=== PATIENT | female | born 1950 | race Caucasian/White ===

== ENCOUNTER 2021-03-09 13:27 | Outpatient (CLI) | payer MEDICARE, SELFPAY ==
--- NOTE | 2021-03-09 13:36 | MM_ITS ---
WS: [id number] BILATERAL SCREENING DIGITAL MAMMOGRAM WITH CAD HISTORY: SCREENING COMPARISON: None available. Bilateral CC and MLO views submitted. Computer aided detection analyzed. Breast composition: The breasts are heterogeneously dense, which may obscure small masses. No suspici ous masses, microcalcifications or architectural distortion. Benign calcifications within each breast . MM/[place] [id number] IMPRESSION: BI-RADS: 2-Benign FOLLOW UP: 1 Year Follow-up
== END 2021-03-09 13:28 | disposition home or self-care (01) ==
LOC: RADSHAW 13:34
PROVIDERS: PCP Physician Assistant; Visit Provider Physician Assistant
DX: Z12.31 Encounter for screening mammogram for malignant neoplasm of breast (principal)
CPT/HCPCS: 77067

== ENCOUNTER → 2021-07-24 11:00 | Outpatient (BNVA) | payer MEDICARE, SELFPAY | PROVIDERS: PCP Physician Assistant; Visit Provider Registered Nurse Neonatal Intensive Care | DX: Z20.822 Contact with and (suspected) exposure to COVID-19 (principal) | CPT/HCPCS: 87635 ==

== ENCOUNTER → 2022-01-26 10:47 | Outpatient (BNVA) | payer MEDICARE, SELFPAY | PROVIDERS: PCP Family Medicine; Visit Provider Family Medicine | DX: Z00.00 Encounter for general adult medical examination without abnormal findings (principal); E03.9 Hypothyroidism, unspecified | CPT/HCPCS: 80053; 80061; 84443 ==

== ENCOUNTER → 2022-08-29 11:25 | Outpatient (BNVA) | payer MEDICARE, SELFPAY | PROVIDERS: PCP Family Medicine; Visit Provider Family Medicine | DX: Z00.00 Encounter for general adult medical examination without abnormal findings (principal); E03.9 Hypothyroidism, unspecified | CPT/HCPCS: 84443 ==

== ENCOUNTER → 2023-02-06 11:18 | Outpatient (BNVA) | payer MEDICARE, SELFPAY | PROVIDERS: PCP Family Medicine; Visit Provider Family Medicine | DX: E03.9 Hypothyroidism, unspecified (principal); G47.9 Sleep disorder, unspecified; Z13.1 Encounter for screening for diabetes mellitus; Z13.6 Encounter for screening for cardiovascular disorders | CPT/HCPCS: 80053; 80061; 83036; 84443 ==

== ENCOUNTER → 2024-02-19 15:26 | Outpatient (BNVA) | payer MEDICARE, SELFPAY | PROVIDERS: PCP Family Medicine; Visit Provider Family Medicine | DX: Z00.00 Encounter for general adult medical examination without abnormal findings (principal); E03.9 Hypothyroidism, unspecified | CPT/HCPCS: 80053; 80061; 84443 ==

== ENCOUNTER 2024-04-02 12:40 | Outpatient (CLI) | payer MEDICARE, SELFPAY ==
--- NOTE | 2024-04-02 13:00 | MR_ITS ---
WS: [id number] MRI LEFT KNEE NONCONTRAST TECHNIQUE: Axial PD, coronal PD fat sat, coronal PD, sagittal PD, and sagittal PD fat-sat images obta ined. CLINICAL INFORMATION: knee pain/dysfunction post injury, not healing COMPARISON: None. FINDINGS: Distal quadriceps and patella tendons are intact. Hypertrophic patella. Advanced chondromalacia [place] grade 4. Small amount of subchondral edema. ACL and PCL are intact. Small osteochondral defect inv olving the articular surface medial tibial plateau with small osteochondral defect measuring 6 mm. Re commend correlation for recent trauma. Small amount of fluid and edema in the associated soft tissues . Bucket-handle type tear involving the medial meniscus with peripheral extrusion. Meniscal fragment extends into the posterior intercondylar fossa. Chronic thinning of the lateral meniscus. Small amount of fluid and edema deep to the medial collateral ligament compatible with grade 1-2 inju ry. Lateral collateral ligament appears intact. Popliteus appears intact. Normal fibula head. A few t iny lobulated popliteal cysts. MR/MR knee LT wo con* [id number] IMPRESSION: 1. Moderate edema involving the medial tibial plateau with a small osteochondr al defect measuring 5 mm. Recommend correlation with recent injury. 2. Bucket-handle type tear of the medial meniscus with displaced fragment exte nding into the intercondylar fossa anterior to the PCL. Peripheral extrusion of the medial meniscus. 3. Grade 1-2 injury medial collateral ligament. 4. Grade IV chondromalacia patella. Outbridge grading: grade IV: full-thickness cartilage loss with underlying bone reactive changes
== END 2024-04-02 12:41 | disposition home or self-care (01) ==
LOC: RAD 12:41
PROVIDERS: PCP Family Medicine; Visit Provider Family Medicine
DX: S83.212A Bucket-handle tear of medial meniscus, current injury, left knee, initial encounter (principal); S83.412A Sprain of medial collateral ligament of left knee, initial encounter; M22.42 Chondromalacia patellae, left knee; X58.XXXA Exposure to other specified factors, initial encounter
CPT/HCPCS: 73721

== ENCOUNTER → 2024-09-18 13:31 | Outpatient (BNVA) | payer MEDICARE, SELFPAY | PROVIDERS: PCP Family Medicine; Visit Provider Family Medicine | DX: E03.9 Hypothyroidism, unspecified (principal); S83.207A Unspecified tear of unspecified meniscus, current injury, left knee, initial encounter; G47.9 Sleep disorder, unspecified; X58.XXXA Exposure to other specified factors, initial encounter | CPT/HCPCS: 80053; 82306; 82607; 84443 ==

== ENCOUNTER → 2024-11-03 13:36 | Outpatient (BNVA) | payer MEDICARE, SELFPAY | PROVIDERS: PCP Family Medicine; Visit Provider Orthopaedic Surgery | DX: S83.212A Bucket-handle tear of medial meniscus, current injury, left knee, initial encounter (principal); M22.42 Chondromalacia patellae, left knee; X58.XXXA Exposure to other specified factors, initial encounter | CPT/HCPCS: 99204 ==

== ENCOUNTER 2024-11-13 07:26 | Outpatient (CLI) | payer MEDICARE, SELFPAY ==
[2024-11-13 08:14] LABS: Basophils % 0.8 %; Eosinophils # 0.1 10^3/uL (0.0-0.8); Eosinophils % 3.7 %; Hematocrit 40.6 % (36-47); Lymphocytes # 1.3 10^3/uL (0.8-4.8); Lymphocytes % 33.3 %; Mean Corpuscular HGB Conc 32.5 g/dL (30-55); Mean Corpuscular Hemoglobin 30.7 pg (27-33); Mean Corpuscular Volume 94.4 fl (85-98); Mean Platelet Volume 9.1 fL (7.4-10.4); Monocytes # 0.4 10^3/uL (0.2-0.9); Monocytes % 9.6 %; Neutrophils # 1.96 10^3/uL (1.8-7.7); Neutrophils % 52.3 %; Nucleated Red Blood Cells % 0 %; Platelet Count 219 10^3/cmm (157-399); Red Cell Distribution Width 12.6 % (12.1-15.1); White Blood Count 3.75 10^3/uL (3.29-11.43)
[2024-11-13 08:15] LABS: Bilirubin Urine Negative (Negative); Blood Urine Negative (Negative); Glucose Urine UA Negative (Normal); Ketones Urine Negative (Negative); Leukocyte Esterase Urine 2+ (Negative); Nitrate Urine Positive (Negative); Protein Urine Negative (Negative); Specific Gravity, Urine 1.007 (1.005-1.030); Urine Appearance Clear (CLEAR); Urine Color Yellow (Yellow); Urobilinogen Urine 0.2 mg/dL (Negative); pH Urine 7.5 (5-7)
[2024-11-13 08:17] LABS: Add Urine Microscopic? YES; Bacteria Urine 4+ /hpf; Hyaline Casts Urine 0-4 /lpf; RBC Urine 0-2 /hpf (0-2); Squamous Epithelial Cell Urine 0-5 /hpf (0-5); WBC Urine 51-100 /hpf (0-5)
[2024-11-13 08:18] LABS: Add Urine Culture? Yes
[2024-11-13 08:48] LABS: Alanine Aminotransferase 15 U/L (0-33); Alkaline Phosphatase 72 U/L (35-105); Anion Gap 18.1 (5-19); Aspartate Amino Transferase 24 U/L (0-32); Blood Urea Nitrogen 8 mg/dL (8-23); Calcium 9.1 mg/dL (8.5-10.5); Carbon Dioxide 25 mmol/L (22-29); Chloride 101 mmol/L (98-107); Globulin 2.8 g/dL (1.3-4.6); Glucose 85 mg/dL (65-115); Osmolality Calculated 288 mOsm/kg (285-295); Potassium 4.1 mmol/L (3.5-5.1); Sodium 140 mmol/L (136-145); Total Bilirubin 0.5 mg/dL (0.15-1.2); Total Protein 6.8 g/dL (6.6-8.7)
== END 2024-11-13 07:27 | disposition home or self-care (01) ==
PROVIDERS: PCP Family Medicine; Visit Provider Orthopaedic Surgery
DX: Z01.818 Encounter for other preprocedural examination (principal)
CPT/HCPCS: 36415; 80053; 81001; 85025; 87077; 87086; 87186

== ENCOUNTER → 2024-11-20 07:44 | Outpatient (BNVA) | payer MEDICARE, SELFPAY | PROVIDERS: PCP Family Medicine; Visit Provider Orthopaedic Surgery | DX: M25.562 Pain in left knee (principal); S83.212A Bucket-handle tear of medial meniscus, current injury, left knee, initial encounter; X58.XXXA Exposure to other specified factors, initial encounter | CPT/HCPCS: 73560; 73565; 99213 ==

== ENCOUNTER 2025-02-18 08:18 | Day surgery (SDC) | payer MEDICARE, SELFPAY ==
[2025-02-18] VITALS (16 sets, daily range): BP systolic 108–145; BP diastolic 49–92; PULSE 59–74; RESP 12–18; TEMP 36.1–36.7; O2SAT 92–98; BMI 34.4
--- NOTE | 2025-02-18 08:44 | ECG_ITS ---
[facility] Test Date: 2025-02-18 Pat Name: Frandy Johnson Department: Room: Gender: Female Service Technician Copier: : [id number] Requested By: Sobeida Brenner Order Number: [id number] Shana MD: Yaneli Watson M.D. Measurements Intervals [place] Rate: 68 P: 83 DE: 160 QRS: -7 QRSD: 88 T: 28 QT: 389 QTc: 416 Interpretive Statements SINUS RHYTHM No previous ECG available for comparison Electronically Signed On 02-18-2025 13:55:10 CDT by Yaneli Watson M.D. [email or web address]
--- NOTE | 2025-02-18 09:33 | W.PM.OPSUD ---
Surgery/Procedure H&P Update DATE OF PROCEDURE: February 18, 2025 DATE H&P PERFORMED: 02/17/25 H&P UPDATE INFORMATION: I have reviewed H&P completed within last 30 days, I have examined patient prior to procedure and No changes to prior documentation PREOP DIAGNOSIS: Internal derangement left knee, torn meniscus PLANNED PROCEDURE: Operation Date: 02/18/25 09:55 Proposed Procedures p LEFT Knee Arthroscopy(Left) - Armaan Chen MD s LEFT Medial Meniscus Repair(Left) - Armaan Chen MD
--- NOTE | 2025-02-18 10:10 | ANES.PREANE2 ---
Pre-Anesthetic Assessment Height/Weight: Height 1.56 m Weight 83.915 kg Temp Pulse Resp BP Pulse Ox O2 Del Method 97 F L 74 18 145/78 97 Room Air 02/18/25 08:43 02/18/25 08:43 02/18/25 08:43 02/18/25 08:43 02/18/25 08:43 02/18/25 08:43 Preop Diagnosis: Internal derangement left knee, torn meniscus Operation Date: 02/18/25 09:55 Proposed Procedures p LEFT Knee Arthroscopy(Left) - Armaan Chen MD s LEFT Medial Meniscus Repair(Left) - Armaan Chen MD Familial anesthetic complications: None Was Beta Willie taken within 24 hours: N/A Was Clonidine taken within 24 hours: N/A Last intake: Intake Last Liquid Date 02/17/25 Last Liquid Time 22:30 Last Solid Date 02/17/25 Last Solid Time 20:20 Social No alcohol and No tobacco Exam alert, oriented x 3, clear to auscultation bilaterally and regular rate & rhythm Airway Mallampati: Class I Dentition: full (1 missing) Metabolic Thyroid Disease Anesthetic Plan ASA status: 2 Anesthesia: General Risk of > 500 ml blood loss (7ml/kg in children): No Medications/Allergies Home Medications ?Medication ?Instructions ?Recorded ?Confirmed ?Last Taken ?Type levothyroxine 150 mcg tablet 150 mcg PO DAILY #90 tabs 10/08/24 02/18/25 02/18/25 Rx Allergies Allergy/AdvReac Type Severity Reaction Status Date / Time No Known Allergies Allergy Unverified 02/18/25 08:35 Current Medications Generic Name Dose Route Start Last Admin Trade Name Siria PRN Reason Stop Dose Admin Sodium Chloride 1,000 mls @ 30 mls/hr 02/18/25 08:30 02/18/25 09:16 Sodium Chloride 0.9% IV 02/19/25 08:29 30 mls/hr .Q24H JOANA Administration PFSH Anesthesia Social History Smoking and tobacco/nicotine status: never used tobacco/nicotine
[2025-02-18] MEDS: ceFAZolin 2,000 mg SDV 2000 MG IVP (10:14)
[2025-02-18] MEDS: BUPivacaine 0.5% INJ 30 mL INJECTION (10:58)
[2025-02-18] MEDS: fentaNYL 50 mcg/mL INJ 2mL IVP (11:21)
--- NOTE | 2025-02-18 11:26 | PM.OP ---
Operative Report Date of procedure: February 18, 2025 Surgeon: Armaan Chen MD Procedure: Preoperative diagnosis: Internal derangement left knee Postoperative diagnosis: Degenerative tear posterior horn medial meniscus and lateral meniscus, chondromalacia of the medial femoral condyle and medial tibial plateau, chondromalacia of the lateral femoral condyle. Procedure: Diagnostic left knee arthroscopy with partial medial and lateral meniscectomies, chondroplasty of medial femoral condyle, lateral femoral condyle, medial tibial plateau. Surgeon: Armaan Hernández MD Anesthesia: General EBL: None Indications: Ralf Rocha was referred to the orthopedic clinic for debilitating left knee pain. She has stabbing pain on medial aspect of her knee difficulty with stairs. Difficulty ambulation. Subsequent MRI demonstrated tear of the posterior horn medial meniscus. X-rays demonstrated well-maintained joint line with only minimal amounts of wear. MRI also confirmed minimal amounts of articular cartilage wear. Therefore at this time patient having failed all conservative measures and was offered a diagnostic knee arthroscopy with all indicated procedures. All risk benefits treatment alternatives were discussed with her and she is agreeable to this at this time. Procedure: After obtaining her consent patient taken to the operating room placed on the operative table supine position general anesthetic administered. Once [place] was achieved left legs placed in a leg villalobos the bed was dropped. Right leg was padded out appropriately. Left leg is prepped and draped usual fashion. After surgical timeout standard anterior medial and lateral portals were made with a #11 blade. Camera cannula placed lateral portal into her knee was undertaken. Suprapatellar pouch region had hypertrophic synovium however there is only some slight softening of the posterior patella articular cartilage. Also some mild fine fraying of the articular cartilage of the IT groove basically grade I chondromalacia. Medial gutter was clear medial compartment demonstrated a large flap tear of the posterior horn medial meniscus. This debrided out with mechanical shaver as well as small hand instruments. Also noted was grade II/III chondromalacia of the central weightbearing surface of the medial femoral condyle this was debrided down to stable cartilaginous base with mechanical shaver. Also up towards the front of the medial tibial plateau was also grade II/III chondromalacia that was also debrided with a mechanical shaver. Intercondylar notch demonstrated intact anterior cruciate ligament. Lateral compartment demonstrated degenerative fraying of the posterior one third inner edge of the lateral meniscus. This is debrided down to stable cartilaginous base mechanical shaver. There is also chondromalacia of the distal femur of the lateral side grade 2/3. This too was debrided with mechanical shaver down to stable cartilaginous base. At this point knee was washed sterile go irrigation. REMOVED. Wounds are closed with 3-0 Prolene interrupted sutures. Approximately 30 cc of interarticular and superficial Marcaine was placed within the knee for postop pain management. Wounds are cleaned and dry dressed with Xeroform gauze sterile gauze dressing Kerlix wrap and an Larry wrap for compression. Patient awakened transferred to cover room stable condition
[2025-02-18] MEDS: ondansetron 2 mg/ML SDV 2 mL 4 MG IVP (12:24)
--- NOTE | 2025-02-18 13:50 | ANE.PACU2 ---
Inpatient post-anesthesia follow up: Airway intact: Yes Vital signs: Temperature 98.0 F Pulse Rate 63 Respiratory Rate 16 Blood Pressure 108/67 Pulse Oximetry 98 Oxygen Delivery Me thod Room Air Oxygen Flow Rate Fraction of Inspir ed Oxygen Hydration adequate: Yes Nausea and vomiting: No Pain level: 1 Mental status: Baseline
== END 2025-02-18 13:50 | disposition home or self-care (01) ==
PROVIDERS: PCP Family Medicine; Visit Provider Orthopaedic Surgery
PROC: (CPT 29870; principal; 2025-02-18 09:55)
PROC: (CPT 29880; 2025-02-18 09:55)
DX: M23.92 Unspecified internal derangement of left knee (principal); S83.282A Other tear of lateral meniscus, current injury, left knee, initial encounter; S83.242A Other tear of medial meniscus, current injury, left knee, initial encounter; X58.XXXA Exposure to other specified factors, initial encounter; M94.262 Chondromalacia, left knee; E07.9 Disorder of thyroid, unspecified
CPT/HCPCS: 29880; 93005; J0690; J1885; J2405; J2704; J3010; J3490; J7030; J9999

== ENCOUNTER → 2025-03-03 09:57 | Outpatient (BNVA) | payer MEDICARE, SELFPAY | PROVIDERS: PCP Family Medicine; Visit Provider Orthopaedic Surgery | DX: Z98.890 Other specified postprocedural states (principal) | CPT/HCPCS: 99024 ==